=== PATIENT | female | born 1960 | race American Indian/Alaskan Native ===

== ENCOUNTER 2017-09-05 15:05 | Emergency (ER) | payer MEDICAID, OTHER ==
[2017-09-05] MEDS ORDERED: CATAPRES PO ONE (18:30)
[2017-09-05] MEDS ORDERED: TESSALON PERLES PO ONE (18:30)
--- NOTE | 2017-09-05 18:46 | Emergency Department Report ---
Chief Complaint: High BP Stated Complaint: COUGH, UTI, HTN Time Seen by Provider: 09/05/17 18:27 - HPI History of Present Illness: The patient is a 57-year-old female presents for evaluation of elevated blood pressure and dysuria. The patient states that her blood pressure has been elevated because she has been out of her medications. She recently moved here and left her medications in another state. She complains of dysuria and a mild non-productive cough for the past 2 days. The patient denies fever, chills, night sweats, chest pain, hemoptysis, dyspnea, diarrhea, blood in the stool, dark tarry stool, hematuria, flank pain, genital discharge, inability to pass flatus. - Exam Vital Signs: Vital Signs 09/05/17 09/05/17 15:39 18:42 Temperature 98.9 F Pulse Rate 108 H 102 H Respiratory 18 Rate Blood Pressure 177/100 171/95 O2 Sat by Pulse 100 Oximetry MSE screening note: Focused history and physical exam performed. Due to findings the following was ordered: ED Disposition for MSE Condition: Stable Referrals: PRIMARY CARE [Primary Care Provider] - 3-5 Days
[2017-09-05 19:48] LABS: Bilirubin,Urine NEG (Negative); Blood,Urine NEG (Negative); Color,Urine Yellow (Yellow); Mucus,Urine FEW /HPF
[2017-09-05 20:04] VITALS: BP 152/90
--- NOTE | 2017-09-05 20:12 | Emergency Department Report ---
ED Recheck HPI - General Chief Complaint: High BP Stated Complaint: COUGH, UTI, HTN Time Seen by Provider: 09/05/17 18:27 Source: patient Mode of arrival: Ambulatory Limitations: No Limitations - History of Present Illness Initial Comments: This is a 57-year-old female nontoxic, well nourished in appearance, no acute signs of distress presents to the ED with c/o of dyrusia and medication refill. Patient stated she takes lisinopril 5 mg twice a day with last dose being 2 days ago. Patient denies following up with a primary care doctor and city she is in a weakness. Patient denies any abdominal pain, headache, blurred vision, visual changes, nausea, vomiting, chest pain, shortness of breath, back pain. Patient describes dysuria as a burning sensation but denies any hematuria or vaginal bleeding or vaginal discharge. Patient also is stating that she has nonproductive cough the past 2 days. Patient denies any allergies. PMH includes HTN. MD Complaint: medication refill request, other (dysuria) Returns Today for: request for prescription Symptoms Since Prior Visit: no new symptoms Associated Symptoms: none. denies: fever, chills, chest pain, shortness of breath, rash, malaise, nasuea, abdominal pain - Related Data Previous Rx's Medication Instructions Recorded Last Taken Type Lisinopril [Zestril TAB] 5 mg PO BID #60 tablet 09/05/17 Unknown Rx Nitrofurantoin Monohyd/M-Cryst 100 mg PO BID #14 capsule 09/05/17 Unknown Rx [Macrobid 100 mg Capsule] Allergies Allergy/AdvReac Type Severity Reaction Status Date / Time No Known Allergies Allergy Unverified 09/05/17 15:43 ED Review of Systems ROS: Stated complaint: COUGH, UTI, HTN Other details as noted in HPI Constitutional: denies: chills, fever Eyes: denies: eye pain, eye discharge, vision change ENT: denies: ear pain, throat pain Respiratory: denies: cough, shortness of breath, wheezing Cardiovascular: denies: chest pain, palpitations Endocrine: no symptoms reported Gastrointestinal: denies: abdominal pain, nausea, diarrhea Genitourinary: dysuria. denies: urgency, discharge Musculoskeletal: denies: back pain, joint swelling, arthralgia Skin: denies: rash, lesions Neurological: denies: headache, weakness, paresthesias Psychiatric: denies: anxiety, depression Hematological/Lymphatic: denies: easy bleeding, easy bruising ED Past Medical Hx - Past Medical History Hx Hypertension: Yes Additional medical history: elevated cholesterol - Surgical History Hx Cholecystectomy: Yes - Social History Smoking Status: Never Smoker Substance Use Type: None - Medications Home Medications: Home Medications Medication Instructions Recorded Confirmed Last Taken Type Lisinopril [Zestril TAB] 5 mg PO BID #60 tablet 09/05/17 Unknown Rx Nitrofurantoin Monohyd/M-Cryst 100 mg PO BID #14 capsule 09/05/17 Unknown Rx [Macrobid 100 mg Capsule] ED Physical Exam - General Limitations: No Limitations General appearance: alert, in no apparent distress - Head Head exam: Present: atraumatic, normocephalic - Eye Eye exam: Present: normal appearance Pupils: Present: normal accommodation - ENT ENT exam: Present: normal exam, mucous membranes moist - Neck Neck exam: Present: normal inspection, full ROM - Respiratory Respiratory exam: Present: normal lung sounds bilaterally. Absent: respiratory distress, wheezes, rales, rhonchi, stridor, chest wall tenderness, accessory muscle use, decreased breath sounds, prolonged expiratory - Cardiovascular Cardiovascular Exam: Present: regular rate, normal rhythm, normal heart sounds. Absent: irregular rhythm, systolic murmur, diastolic murmur, rubs, gallop - GI/Abdominal GI/Abdominal exam: Present: soft, normal bowel sounds - Rectal Rectal exam: Present: deferred - Extremities Exam Extremities exam: Present: normal inspection, full ROM, normal capillary refill - Back Exam Back exam: Present: normal inspection, full ROM. Absent: tenderness, CVA tenderness (R), CVA tenderness (L), muscle spasm, paraspinal tenderness, vertebral tenderness, rash noted - Neurological Exam Neurological exam: Present: alert, oriented X3, CN II-XII intact, normal gait, reflexes normal - Expanded Neurological Exam Expanded Patient oriented to: Present: person, place, time Cerebellar function: Finger to Nose: Normal Upper motor neuron: Pronator Drift: Normal, Sensory Extinction: Normal Sensory exam: Upper Extremity Light Touch: Normal, Upper Extremity Pin Prick: Normal, Upper Extremity Temperature: Normal, UE 2 Point Discrimination: Normal, Lower Extremity Light Touch: Normal, Lower Extremity Pin Prick: Normal, Lower Extremity Temperature: Normal, LE 2 Point Discrimination: Normal Motor strength exam: RUE: 5, LUE: 5, RLE: 5, LLE: 5 DTR: bicep (R): 2+, bicep (L): 2+, tricep (R): 2+, tricep (L): 2+, knee (R): 2+ , knee (L): 2+, ankle (R): 2+, ankle (L): 2+ Best Eye Response (Sanjay): (4) open spontaneously Best Motor Response (Sanjay): (6) obeys commands Best Verbal Response ([place]): (5) oriented Sanjay Total: 15 - Psychiatric Psychiatric exam: Present: normal affect, normal mood - Skin Skin exam: Present: warm, dry, intact, normal color. Absent: rash ED Course Vital Signs 09/05/17 09/05/17 09/05/17 15:39 18:42 20:04 Temperature 98.9 F 98.8 F Pulse Rate 108 H 102 H 92 H Respiratory 18 16 Rate Blood Pressure 177/100 171/95 Blood Pressure 152/90 [Left] O2 Sat by Pulse 100 100 Oximetry - Reevaluation(s) Reevaluation #1: 09/05/17 20:13 Patient is speaking in full sentences with no signs of distress noted. - Consultations Consultation #1: 09/05/17 20:14 Patient has been consulted with Dr. Harrell about patient history, physical exam, and labs and examined and screened patient and agrees to ED plan of care and discharge plan of care. ED Recheck MDM - Medical Decision Making This is a 57-year-old female that presents with hypertension and UTI. Patient is stable and was examined by me and Dr. Harrell. Patient received Catapres and blood pressure decrease in vital signs within normal limits prior to discharge. I will refer patient's medication of lisinopril 5 mg twice a day and patient is also received Bactrim at discharge. UA with elevated WBCs and leukocytes. Patient is neurologically stable. Patient was instructed refer to Follow-up with a primary care doctor in 3-5 days or if symptoms worsen and continue return to emergency room as soon as possible. At time of discharge, the patient does not seem toxic or ill in appearance. No acute signs of distress noted. Patient agrees to discharge treatment plan of care. No further questions noted by the patient. Critical care attestation.: If time is entered above; I have spent that time in minutes in the direct care of this critically ill patient, excluding procedure time. ED Disposition Clinical Impression: Hypertension Qualifiers: Hypertension type: unspecified Qualified Code(s): I10 - Essential (primary) hypertension UTI (urinary tract infection) Qualifiers: Urinary tract infection type: site unspecified Hematuria presence: without hematuria Qualified Code(s): N39.0 - Urinary tract infection, site not specified Disposition: - TO HOME OR SELFCARE Is pt being admited?: No Does the pt Need Aspirin: No Condition: Stable Instructions: Hypertension (ED), Urinary Tract Infection in Women (ED) Additional Instructions: Follow-up with a primary care doctor in 3-5 days or if symptoms worsen and continue return to emergency room as soon as possible. Prescriptions: Lisinopril [Zestril TAB] 5 mg PO BID #60 tablet Nitrofurantoin Monohyd/M-Cryst [Macrobid 100 mg Capsule] 100 mg PO BID #14 capsule Referrals: PRIMARY MD THEODORE [Primary Care Provider] - 3-5 Days EDWARDO CHAVEZ MD [Staff Physician] - 3-5 Days [facility] [Outside] - 3-5 Days [facility] [Outside] - 3-5 Days Forms: Work/School Release Form(ED)
== END 2017-09-05 20:23 | disposition home or self-care (01) ==
LOC: ED 15:05
DX: N39.0 Urinary tract infection, site not specified (principal); I10 Essential (primary) hypertension; Z90.49 Acquired absence of other specified parts of digestive tract
CPT/HCPCS: 81001; 99283

== ENCOUNTER 2017-11-26 12:38 | Emergency (ER) | payer MEDICARE, MEDICAID ==
--- NOTE | 2017-11-26 13:41 | Emergency Department Report ---
ED General Adult HPI - General Chief complaint: Extremity Problem,Nontraumatic Stated complaint: NUMBNESS IN LOWER EXTREMITIES/UNABLE TO WALK Time Seen by Provider: 11/26/17 13:17 Source: patient, EMS Mode of arrival: Stretcher Limitations: Physical Limitation - History of Present Illness Initial comments: 49-year-old female poor historian says she fell in the tub yesterday she says today is getting harder to walk and now her legs are numb she is uncooperative with further history she does have history of bipolar and hypertension she also says she is on a heart pill she is here stating bilateral lower extremity numbness and weakness after a fall in the tub yesterday patient is unable to give further history she denies any bladder or bowel problems she does have normal Babinski response is here for evaluation of lower back pain numbness tingling weakness after the fall mental she denied head injury denied chest pain abdominal pain -: Sudden, hour(s) Radiation: back, extremity Severity scale (0 -10): 4 Quality: burning, aching, other Consistency: intermittent Associated Symptoms: denies other symptoms. denies: confusion, chest pain, cough, diaphoresis, fever/chills, headaches, loss of appetite, malaise, nausea/ vomiting, rash, seizure - Related Data Previous Rx's Medication Instructions Recorded Last Taken Type Lisinopril [Zestril TAB] 5 mg PO BID #60 tablet 09/05/17 Unknown Rx Nitrofurantoin Monohyd/M-Cryst 100 mg PO BID #14 capsule 09/05/17 Unknown Rx [Macrobid 100 mg Capsule] Ibuprofen [Motrin] 600 mg PO Q8H PRN #15 tablet 11/26/17 Unknown Rx Prednisone 50 mg PO DAILY #7 tablet 11/26/17 Unknown Rx Allergies Allergy/AdvReac Type Severity Reaction Status Date / Time No Known Allergies Allergy Unverified 09/05/17 15:43 ED Review of Systems ROS: Stated complaint: NUMBNESS IN LOWER EXTREMITIES/UNABLE TO WALK Other details as noted in HPI Comment: All other systems reviewed and negative Constitutional: denies: diaphoresis, fever, malaise Eyes: denies: eye discharge, vision change ENT: denies: dental pain, hearing loss, epistaxis Respiratory: denies: shortness of breath, SOB with exertion, SOB at rest, stridor Cardiovascular: denies: chest pain, palpitations, dyspnea on exertion, orthopnea , edema, syncope Gastrointestinal: denies: abdominal pain, nausea, vomiting, constipation, hematemesis, melena Musculoskeletal: back pain, arthralgia, myalgia. denies: joint swelling Neurological: weakness, numbness, paresthesias. denies: confusion, abnormal gait, vertigo ED Past Medical Hx - Past Medical History Previous Medical History?: Yes Hx Hypertension: Yes Hx Psychiatric Treatment: Yes (Bipolar) Additional medical history: elevated cholesterol - Surgical History Hx Cholecystectomy: Yes - Social History Smoking Status: Never Smoker Substance Use Type: None - Medications Home Medications: Home Medications Medication Instructions Recorded Confirmed Last Taken Type Lisinopril [Zestril TAB] 5 mg PO BID #60 tablet 09/05/17 Unknown Rx Nitrofurantoin Monohyd/M-Cryst 100 mg PO BID #14 capsule 09/05/17 Unknown Rx [Macrobid 100 mg Capsule] Ibuprofen [Motrin] 600 mg PO Q8H PRN #15 tablet 11/26/17 Unknown Rx Prednisone 50 mg PO DAILY #7 tablet 11/26/17 Unknown Rx ED Physical Exam - General Limitations: Physical Limitation General appearance: alert - Head Head exam: Present: atraumatic, normocephalic - Eye Eye exam: Present: PERRL, EOMI - ENT ENT exam: Present: normal exam, normal orophraynx - Neck Neck exam: Present: other. Absent: meningismus (paraspinal m t) - Respiratory Respiratory exam: Present: normal lung sounds bilaterally. Absent: respiratory distress, wheezes, rales, chest wall tenderness, accessory muscle use, decreased breath sounds, prolonged expiratory - Cardiovascular Cardiovascular Exam: Present: regular rate, normal rhythm - GI/Abdominal GI/Abdominal exam: Present: soft. Absent: tenderness, guarding, rebound, organomegaly, mass, pulsatile mass - Rectal Rectal exam: Present: other (normal tone, no sacral anteshteais) - Extremities Exam Extremities exam: Present: normal capillary refill, other. Absent: calf tenderness - Back Exam Back exam: Present: muscle spasm, paraspinal tenderness, vertebral tenderness - Neurological Exam Neurological exam: Present: alert, oriented X3, CN II-XII intact, other ( uncoperative w/ lt and pp exam) - Skin Skin exam: Absent: cyanosis, diaphoretic, erythema, urticaria, vesicles, petechiae, pallor, abrasion, ecchymosis ED Course Vital Signs 11/26/17 12:56 Temperature 98.1 F Pulse Rate 93 H Respiratory 18 Rate Blood Pressure 151/83 O2 Sat by Pulse 98 Oximetry ED Medical Decision Making - Radiology Data Radiology results: report reviewed - Medical Decision Making MRI shows lumbar spinal stenosis with degenerative changes with foraminal stenosis with degenerative disc retropulsion and likely tension nerve patient has good rectal tone no sacral anesthesia no evidence of cauda equina syndrome she is stable for outpatient follow-up she will be referred to orthopedics for further evaluation she will be placed on anti-inflammatory and steroid no evidence of spinal cord compressive syndrome is noted at this time no evidence of fracture Critical care attestation.: If time is entered above; I have spent that time in minutes in the direct care of this critically ill patient, excluding procedure time. ED Disposition Clinical Impression: Spinal stenosis, Lumbar radiculopathy Disposition: TO HOME OR SELFCARE Is pt being admited?: No Condition: Stable Instructions: Lumbar Disc Herniation (ED), Lumbar Radiculopathy (ED), Lumbar Spinal Stenosis (ED) Additional Instructions: Return immediately if new or alarming symptoms such as bladder or bowel dysfunction or other problems such as worsening symptoms or new alarming symptoms or call 911 see the doctor listed return immediately if worse medications as directed Prescriptions: Ibuprofen [Motrin] 600 mg PO Q8H PRN #15 tablet PRN Reason: Pain Prednisone 50 mg PO DAILY #7 tablet Referrals: KULDIP JAIMES MD [Primary Care Provider] - 3-5 Days HARVINDER GARCIA MD [Staff Physician] - 3-5 Days Time of Disposition: 18:44
--- NOTE | 2017-11-26 17:47 | Magnetic Resonance Report ---
FINAL REPORT PROCEDURE: MR LUMBAR SPINE WO CON TECHNIQUE: Magnetic resonance imaging of the lumbar spine was performed using standard pulse sequences without contrast material. CPT 35802 HISTORY: fall/numbess COMPARISON: No prior studies are available for comparison. FINDINGS: The signal intensity and height of the vertebral bodies appears normal with the exception of mild type 2 Modic degenerative endplate changes at the L4-5 level. The conus appears normal. No mass is seen. The cord appropriately terminates L1-L2 disc space. L1-2: No significant abnormality . L2-3: No significant abnormality . L3-4: Mild degenerative signal seen in the disc. Minimal disc bulge seen extending into the neural foramina on the left. The foramina still appears adequate. Moderate facet arthritis visualized bilaterally.. L4-5: Degenerative signal is seen in the disc. The height of the disc is decreased. Vacuum disc phenomena appears to be present. There is mild posterior osteophytic ridging overlying a diffuse disc bulge. Severe facet arthritis is present bilaterally. Small effusions are seen in the joint spaces. There is ligamentum flavum laxity. The combination of the facet arthritis ligamentum flavum laxity and disc bulge as well as posterior osteophytic spurring is causing moderate to high-grade spinal stenosis. The neural foramina on the right is stenotic and I suspect there is compression of the exiting L4 nerve root. The neural foramina on the left is narrowed although probably still adequate.. L5-S1: Degenerative signal is seen in the disc. The height of the disc is well maintained. Moderate facet arthritis is visualized bilaterally. Mild posterior disc bulge is present without focal disc herniation or spinal stenosis. Neural foramina bilaterally are narrowed, left side more than right. I cannot exclude minimal compression of the left L5 nerve root. The foramina on the right appears adequate. The narrowing of the foramina secondary to ligamentum flavum laxity.. Other: None . IMPRESSION: Moderate to severe spinal stenosis L4-5 level secondary to facet arthritis ligamentum flavum laxity posterior osteophytic ridging and diffuse disc bulge. Neural foraminal stenosis visualized on the right at L4-5. I suspect there is compression of the exiting right L4 nerve root. Degenerative changes L5-S1 level as described. Borderline neural foraminal stenosis on the left at L5. I cannot exclude mild compression of the exiting left L5 nerve root. Mild degenerative disc changes L3-4 level as described. Severe facet arthritis L4-5 level as described. Please see above comments.
--- NOTE | 2017-11-26 17:57 | Magnetic Resonance Report ---
FINAL REPORT PROCEDURE: MR CERVICAL SPINE WO CON TECHNIQUE: Magnetic resonance imaging of the cervical spine was performed using standard pulse sequences without contrast material. HISTORY: fall/numbness COMPARISON: No prior studies are available for comparison. FINDINGS: The height of the vertebral bodies appears normal. No changes are seen that would suggest an acute fracture. There are Schmorl's nodes visualized as well as bulky anterior osteophytic spurs. Smaller posterior osteophytic spurs are visualized. The signal intensity and caliber of the cord appears normal. Region of the foramina magnum appears normal. Congenitally the spinal canal is shallow. Minimal posterior osteophytic spurring and minimal disc bulges obscure additional portions of the anterior epidural space. Minimal disc bulge at C4-C5 and C6-C7 appear to be resting on the anterior surface of the cord without deforming the cord. The neural foramina bilaterally appear adequate. Posterior elements appear intact. The prevertebral soft tissues appear normal. IMPRESSION: Moderate diffuse degenerative disc disease present as described. No focal disc herniation or spinal stenosis visualized. Minimal disc bulges are present as described. Minimal disc bulges at C4-5 and C6-C7 appear to be resting on the cord without deforming the cord. The spinal canal is congenitally shallow although I do not see evidence of acquired spinal stenosis. Neural foramina bilaterally appear adequate.
--- NOTE | 2017-11-26 18:03 | Magnetic Resonance Report ---
FINAL REPORT PROCEDURE: MR THORACIC SPINE WO CON TECHNIQUE: Magnetic resonance imaging of the thoracic spine was performed using standard pulse sequences without contrast material. CPT 90235 HISTORY: fall/numbess COMPARISON: No prior studies are available for comparison. FINDINGS: The signal intensity and height of the vertebral bodies appears normal. No fracture or subluxation is seen. The signal intensity and caliber of the cord appears normal. There is minimal mid thoracic scoliosis convex to the right. Posterior elements appear intact. The neural foramina bilaterally appear adequate. No masses are seen. Mild diffuse degenerative disc disease is present with degenerative signal noted. There is minimal posterior osteophytic spurring at T5-T6, T6-T7 and T7-T8 causing impressions on the anterior epidural space. This appears to be resting on the anterior surface of the cord at the T7-T8 level without definite cord compression. This is best visualized on the T1 axial images. IMPRESSION: Mild degenerative disc disease. No fracture or subluxation is seen. No focal disc herniation or spinal stenosis identified.
[2017-11-26 22:08] VITALS: BP 198/115
== END 2017-11-26 20:32 | disposition home or self-care (01) ==
LOC: ED 12:38
DX: M48.061 Spinal stenosis, lumbar region without neurogenic claudication (principal); M54.16 Radiculopathy, lumbar region; I10 Essential (primary) hypertension; F31.9 Bipolar disorder, unspecified; Z90.49 Acquired absence of other specified parts of digestive tract
CPT/HCPCS: 72141; 72146; 72148